=== PATIENT | male | born 1990 | race American Indian/Alaskan Native ===

== ENCOUNTER 2017-08-08 01:35 | Emergency (ER) | payer SELFPAY ==
[2017-08-08 03:06] LABS: Basophils # (Auto) 0.1 K/mm3 (0.0-0.1); Basophils % (Auto) 0.9 % (0.0-1.8); Eosinophils # (Auto) 0.1 K/mm3 (0.0-0.4); Eosinophils % (Auto) 1.4 % (0.0-4.3); Hemoglobin 10.6 gm/dl (11.8-15.2); Lymphocytes # (Auto) 2.7 K/mm3 (1.2-5.4); Mean Corpuscular HGB Conc 32 % (32-34); Mean Corpuscular Volume 77 fl (84-94); Monocytes # (Auto) 0.7 K/mm3 (0.0-0.8); Monocytes % (Auto) 7.4 % (0.0-7.3); Platelet Count 295 K/mm3 (140-440); Red Blood Count 4.29 M/mm3 (3.65-5.03); Red Cell Distribution Width 17.1 % (13.2-15.2)
[2017-08-08 03:09] LABS: Mean Corpuscular Hemoglobin 25 pg (28-32)
[2017-08-08 03:15] LABS: BUN/Creatinine Ratio 11; Blood Urea Nitrogen 10 mg/dL (9-20); Calcium 8.7 mg/dL (8.4-10.2); Hemolysis Index 0
[2017-08-08 03:16] LABS: INR 1.07 (0.87-1.13)
[2017-08-08 03:17] LABS: Partial Thromboplastin Time 30.9 Sec. (24.2-36.6)
--- NOTE | 2017-08-08 08:19 | Emergency Department Report ---
<NIR HANLEY S - Last Filed: 08/08/17 10:38> ED Lower Extremity HPI - General Chief Complaint: Extremity Problem,Nontraumatic Stated Complaint: LEG LEAKING BLOOD Time Seen by Provider: 08/08/17 07:52 - Related Data Previous Rx's Medication Instructions Recorded Last Taken Type Sulfamethoxazole/Trimethoprim 1 each PO BID 10 Days #20 tablet 08/08/17 Unknown Rx [Bactrim DS TAB] Allergies Allergy/AdvReac Type Severity Reaction Status Date / Time No Known Allergies Allergy Verified 11/29/15 00:16 ED Review of Systems ROS: Stated complaint: LEG LEAKING BLOOD Other details as noted in HPI ED Past Medical Hx - Medications Home Medications: Home Medications Medication Instructions Recorded Confirmed Last Taken Type Sulfamethoxazole/Trimethoprim 1 each PO BID 10 Days #20 tablet 08/08/17 Unknown Rx [Bactrim DS TAB] ED Course Vital Signs 08/08/17 08/08/17 02:26 10:37 Temperature 99.1 F 97.7 F Pulse Rate 104 H 73 Respiratory 18 15 Rate Blood Pressure 137/73 Blood Pressure 115/54 [Right] O2 Sat by Pulse 99 100 Oximetry - Consultations Consultation #1: I, Nir Hanley, spoke with the vascular physician, Dr. Royal, regarding this patient's small wound and the bleeding. He agrees that since it is superficial and also not pulsatile that it is not likely to be an arterial bleed. He also agrees that based on the patient's long-standing lower extremity swelling that this is most likely a venous varicosity under a lot of venous pressure that is causing the spurting of blood. He recommends that a small amount of lidocaine with epinephrine is used at the site of the bleeding for vasoconstriction and that 1-2 stitches be placed in the skin to close it up so that it no longer bleeds. After that he would like a Unna boot or a compression wrap used that should remain in place for about one week. Then the patient will need follow- up with the wound care clinic but the vascular physician is happy to see the patient in his office as well. 08/08/17 10:38 ED Lower Extremity MDM - Lab Data Result diagrams: 08/08/17 02:54 08/08/17 02:54 Critical care attestation.: If time is entered above; I have spent that time in minutes in the direct care of this critically ill patient, excluding procedure time. ED Disposition Clinical Impression: Bilateral cellulitis of lower leg Laceration of right leg excluding thigh Qualifiers: Encounter type: initial encounter Qualified Code(s): S81.811A - Laceration without foreign body, right lower leg, initial encounter Disposition: DC-01 TO HOME OR SELFCARE Condition: Stable Instructions: Suture Care (ED), Laceration (ED), Cellulitis (ED) Additional Instructions: Take antibiotics as prescribed for the full course. Avoid over use of right leg and prop leg up on pillows to decrease swelling while sitting. Follow up with Vascular Surgeon Aroldo Simons in 24-48 hours. Return to ER if red, swollen, foul discharge, or fever. Prescriptions: Sulfamethoxazole/Trimethoprim [Bactrim DS TAB] 1 each PO BID 10 Days #20 tablet Referrals: AROLDO ROYAL MD [Staff Physician] - 3-5 Days [facility] [Outside] - 3-5 Days Forms: Accompanied Note, Work/School Release Form(ED) Print Language: CHINESE <LIBERTY GERMAIN - Last Filed: 08/09/17 10:06> ED Lower Extremity HPI - General Source: patient Mode of arrival: Ambulatory Limitations: No Limitations - History of Present Illness Initial Comments: This is a 27 y.o. male that presents with BLE swelling and moderate bright red drainage to right lower extremity from wound. Patient reports waking up around 0100 this morning to take a shower and heard a loud pop and noticed bright red blood squirting out from right lower lund. States BLE swelling has been present for over 1 year. He is feeling throbbing and achy feeling to both legs but pain is not sharp or radiating. Denies SOB, chest pain, history of diabetes, or recent injury. Complaint: leg injury Onset/Timin -: This morning (around 0100) Injury: Leg: Right (lund abrasion with bright red discharge) Type of Injury: unknown Place: home Severity: severe Severity scale (0 -10): 8 Improves With: nothing Worsens With: other (compression dressing) Associated Symptoms: snap/pop sensation, swelling, ambulatory. denies: numbness , tingling, unable to bear weight, able to partially bear weight Treatments Prior to Arrival: bandage ED Review of Systems Constitutional: denies: chills, fever Respiratory: denies: cough, shortness of breath, wheezing Cardiovascular: edema (BLE). denies: chest pain, palpitations, syncope Gastrointestinal: denies: abdominal pain, nausea, vomiting, diarrhea Skin: rash (BLE), other (BLE swelling). denies: lesions, change in hair/nails Neurological: denies: headache, weakness, paresthesias Psychiatric: denies: anxiety, depression ED Past Medical Hx - Past Medical History Previous Medical History?: Yes Hx Asthma: Yes (childhood) - Surgical History Past Surgical History?: No - Social History Smoking Status: Never Smoker Substance Use Type: None ED Physical Exam - General Limitations: No Limitations General appearance: alert, in no apparent distress, obese - Respiratory Respiratory exam: Present: normal lung sounds bilaterally. Absent: respiratory distress, wheezes, rales, rhonchi, stridor, accessory muscle use - Cardiovascular Cardiovascular Exam: Present: regular rate, normal rhythm, normal heart sounds. Absent: systolic murmur, diastolic murmur, rubs, gallop - GI/Abdominal GI/Abdominal exam: Present: soft, normal bowel sounds. Absent: distended, tenderness, guarding, rebound, rigid - Extremities Exam Extremities exam: Present: tenderness (ble), normal capillary refill, pedal edema (BLE), other (BLE erythema with indistinct borders). Absent: calf tenderness - Expanded Lower Extremity Exam Right Hip exam: Present: normal inspection, full ROM Upper Leg exam: Present: normal inspection, full ROM Knee exam: Present: normal inspection, full ROM Lower Leg exam: Present: full ROM, tenderness, swelling, abrasion (0.5 cm abrasion, moderate serosangious discharge), erythema (with indistinct borders). Absent: ecchymosis, deformity, crepidus, dislocation, palpable cord, Kina's sign Ankle exam: Present: normal inspection, full ROM Foot/Toe exam: Present: normal inspection, full ROM Neuro vascular tendon exam: Present: no vascular compromise Gait: Positive: observed and normal - Neurological Exam Neurological exam: Present: alert, oriented X3, normal gait - Psychiatric Psychiatric exam: Present: normal affect, normal mood - Skin Skin exam: Present: warm, dry, normal color. Absent: rash - Laceration /Wound Repair Right Lower Anterior Distal Leg Wound Location: lower extremity Wound Length (cm): 0 (0.5) Wound's Depth, Shape: superficial Wound Explored: clean Betadine Prep?: Yes Anesthesia: Lidocaine w/ Epi Volume Anesthetic (ccs): 3 Wound Repaired With: sutures Suture Size/Type: 5:0, proline Number of Sutures: 2 (chevron suture) Layer Closure?: No Sterile Dressing Applied?: No (pressure dressing, 4x4 anc coband) ED Lower Extremity MDM - Lab Data Result diagrams: 08/08/17 02:54 08/08/17 02:54 - Radiology Data Radiology results: report reviewed Bilateral US doppler: Negative evidence of DVT/SVT in vessels. - Medical Decision Making This is a 27 y.o. male presents with BLE swelling and perfuse bleeding to right lower extremity laceration that started this morning. Swelling to BLE for over 1 year. Patient is morbidly obese. Patient examined by me and Dr. Hanley. Obtained CBC, BMP, PT/INT/PTT, d-dimer, and US doppler BLE. Doppler shows no signs of DVT/SVT in vessels, H/H 10.6/33.0, all other labs okay, glucose 142. Patient is non-toxic appearing and stable. Consulted with Dr. Hanley, whom consulted with vascular Aroldo Simons. Advised to reduce venous pressure w/lidocaine with epi, place chevron suture, and apply unaboot or pressure dressing. Chevron sutures place and pressure dressing with 4x4 and coband applied to wound. Physical examination is susceptible of cellulites of BLE and laceration to RLE with weeping. Discharged home for outpatient treatment with bactrim and f/u with Vascular, Nicole Simons in 24 hours and wound care. Discussed ER care plan with patient. Patient agreed with plan. F/U with PCP. ED Disposition Is pt being admited?: No Does the pt Need Aspirin: No Time of Disposition: 13:05
[2017-08-08 10:39] VITALS: BP 115/54
[2017-08-08] MEDS ORDERED: XYLOCAINE 2%/ EPI 1:200,000 INFILTRATI ONE ×2 (10:58→12:43)
--- NOTE | 2017-08-08 17:48 | Vascular Lab Report ---
LOWER EXTREMITY VENOUS DUPLEX: REASON FOR EXAM: Pain and swelling of the lower extremities. COMMENTS ON THE RIGHT: All veins visualized are freely compressible without evidence of internal echogenicity. Flow is spontaneous and phasic throughout. COMMENTS ON THE LEFT: All veins visualized are freely compressible without evidence of internal echogenicity. Flow is spontaneous and phasic throughout. IMPRESSION: No evidence of acute or chronic deep venous thrombosis in either lower extremity. Study has some technical limitations due to patient body habitus.
== END 2017-08-08 13:34 | disposition home or self-care (01) ==
LOC: ED 01:35
DX: S81.811A Laceration without foreign body, right lower leg, initial encounter (principal); L03.116 Cellulitis of left lower limb; L03.115 Cellulitis of right lower limb; X58.XXXA Exposure to other specified factors, initial encounter; Y93.89 Activity, other specified; Y92.89 Other specified places as the place of occurrence of the external cause; Y99.8 Other external cause status
CPT/HCPCS: 36415; 80048; 85025; 85379; 85610; 85730; 93970; 99283